=== PATIENT | female | born 1990 | race Caucasian/White ===

== ENCOUNTER 2018-07-17 12:42 | Emergency (ER) | payer OTHER ==
[~2018-07-17] VITALS: Ht 152.4 cm; Wt 107.3 kg
[~2018-07-17 12:42] MED LIST: AMOX500T PO; ANUS2.5C2 TOP; BUTATAB6 PO; COLA100C5 PO; DOCU10CA PO; FIORCAP3 PO; IBUP80TA PO; MAPA500T2 PO; MOM30SS PO; MOTR200T44 PO; NUPE1OIN2 TOP; PRENTAB31 PO; TYLE650T35 PO
[2018-07-17] MEDS ORDERED: SERT-155 (13:02)
[2018-07-17] MEDS ORDERED: NS 1,000 ML IV ONE (15:30)
[2018-07-17] MEDS ORDERED: diphenhydrAMINE INJ 50MG/ML VIAL (J1200) IV ONE (15:30)
[2018-07-17] MEDS ORDERED: METOCLOPRAMIDE INJ 10MG/2ML VIAL (J2765) IV ONE (15:30)
[2018-07-17 15:56] LABS: HEMATOCRIT 36.3 % (36.0-47.0); HEMOGLOBIN 11.9 g/dl (12.0-15.5); MEAN CORPUSCULAR HEMOGLOBIN 26.7 pg (27.0-33.0); MEAN CORPUSCULAR HGB CONC 32.8 g/dl (32.0-36.5); MEAN CORPUSCULAR VOLUME 81.6 fl (80.0-96.0); PLATELET COUNT, AUTOMATED 205 10^3/uL (150-450); RED BLOOD COUNT 4.45 10^6/uL (4.00-5.40); WHITE BLOOD COUNT 8.9 10^3/uL (4.0-10.0)
[2018-07-17 16:07] LABS: INR 1.02; PARTIAL THROMBOPLASTIN TIME 29.5 SECONDS (25.4-37.6); PROTHROMBIN TIME 13.5 SECONDS (12.1-14.4)
[2018-07-17 16:32] LABS: ALT/SGPT 25 U/L (12-78); BILIRUBIN,DIRECT < 0.1 MG/DL (0.0-0.2); BILIRUBIN,TOTAL 0.2 MG/DL (0.2-1.0); BLOOD UREA NITROGEN 8 MG/DL (7-18); CALCIUM LEVEL 8.2 MG/DL (8.5-10.1); CARBON DIOXIDE LEVEL 27 MEQ/L (21-32); CHLORIDE LEVEL 106 MEQ/L (98-107); CREATININE FOR GFR 0.43 MG/DL (0.55-1.30); GLOMERULAR FILTRATION RATE > 60.0 (>60); GLUCOSE, FASTING 76 MG/DL (70-100); MAGNESIUM LEVEL 1.9 MG/DL (1.8-2.4); POTASSIUM SERUM 3.9 MEQ/L (3.5-5.1); SODIUM LEVEL 139 MEQ/L (136-145); TOTAL PROTEIN 6.7 GM/DL (6.4-8.2)
--- NOTE | 2018-07-17 16:39 | REP ---
Clinical: Abdominopelvic pain and cramping. Evaluate for viability. Technique: Transabdominal first trimester obstetrical ultrasound Findings: Single live early intrauterine is appreciated. Early live intrauterine identified. heart rate equals 165 beats per minute. Amniotic fluid volume is subjectively normal. Impression: Single live early intrauterine identified. Electronically Signed by Dwaine Carrasquillo MD 07/17/2018 04:30 P
[2018-07-17] MEDS ORDERED: MORPHINE 4 MG/ML 1ML VIAL/SYRINGE (J2270) IV ONE (17:00)
[2018-07-17 18:21] VITALS: BP 131/76
== END 2018-07-17 18:24 | disposition home or self-care (01) ==
LOC: M ED 12:42
DX: O99.351 Diseases of the nervous system complicating pregnancy, first trimester (principal); O99.411 Diseases of the circulatory system complicating pregnancy, first trimester; R03.0 Elevated blood-pressure reading, without diagnosis of hypertension; O99.341 Other mental disorders complicating pregnancy, first trimester; F32.9 Major depressive disorder, single episode, unspecified; F41.9 Anxiety disorder, unspecified; Z82.0 Family history of epilepsy and other diseases of the nervous system; Z82.49 Family history of ischemic heart disease and other diseases of the circulatory system; Z3A.11 11 weeks gestation of pregnancy
CPT/HCPCS: 76815; 80048; 80076; 81001; 83735; 85027; 85610; 85730; 87086; 96374; 96375; 99284; J1200; J2270; J2765

== ENCOUNTER → 2019-01-02 | Outpatient (CLI) | payer OTHER ==
[~2019-01-02] MED LIST changes: +SERT-155
[2019-01-02 15:30] LABS: HEMATOCRIT 29.5 % (36.0-47.0); HEMOGLOBIN 9.3 g/dl (12.0-15.5); MEAN CORPUSCULAR HEMOGLOBIN 24.6 pg (27.0-33.0); MEAN CORPUSCULAR HGB CONC 31.5 g/dl (32.0-36.5); PLATELET COUNT, AUTOMATED 179 10^3/uL (150-450); RED BLOOD COUNT 3.78 10^6/uL (4.00-5.40); WHITE BLOOD COUNT 7.3 10^3/uL (4.0-10.0)
[2019-01-02 15:42] LABS: APPEARANCE, URINE CLEAR (CLEAR); BACTERIA, URINE AUTO 1+ (NEGATIVE); BILIRUBIN, URINE AUTO NEGATIVE (NEGATIVE); BLOOD, URINE BLOOD NEGATIVE (NEGATIVE); COLOR, URINE YELLOW (YELLOW); GLUCOSE, URINE (UA) AUTO NEGATIVE (NEGATIVE); KETONE, URINE AUTO NEGATIVE (NEGATIVE); LEUKOCYTE ESTERASE, URINE AUTO 1+ (NEGATIVE); MUCUS, URINE SMALL (NEGATIVE); NITRITE, URINE AUTO NEGATIVE (NEGATIVE); PROTEIN, URINE AUTO NEGATIVE (NEGATIVE); RBC, URINE AUTO 4 /HPF (0-3); SPECIFIC GRAVITY URINE AUTO 1.014 (1.002-1.035); SQUAMOUS EPITHELIAL CELL UR AU 5 /HPF (0-6); UROBILINOGEN, URINE AUTO 0.2 mg/dL (0.0-2.0); WBC, URINE AUTO 7 /HPF (0-3)
[2019-01-02 16:04] LABS: CREATININE,RANDOM URINE 80.4 MG/DL; TOTAL PROTEIN,RANDOM URINE 17.1 MG/DL (0.0-12.0)
[2019-01-02 16:20] LABS: ALBUMIN 2.5 GM/DL (3.2-5.2); ALT/SGPT 28 U/L (12-78); BILIRUBIN,DIRECT < 0.1 MG/DL (0.0-0.2); BILIRUBIN,TOTAL 0.2 MG/DL (0.2-1.0); BLOOD UREA NITROGEN 7 MG/DL (7-18); CALCIUM LEVEL 8.5 MG/DL (8.5-10.1); CARBON DIOXIDE LEVEL 21 MEQ/L (21-32); CHLORIDE LEVEL 109 MEQ/L (98-107); CREATININE FOR GFR 0.56 MG/DL (0.55-1.30); GLOMERULAR FILTRATION RATE > 60.0 (>60); GLUCOSE, FASTING 111 MG/DL (70-100); LDH LACTATE DEHYDROGENASE 221 U/L (84-246); POTASSIUM SERUM 3.9 MEQ/L (3.5-5.1); SODIUM LEVEL 139 MEQ/L (136-145); URIC ACID 4.3 MG/DL (2.6-6.0)
== END ==
LOC: M LAB 14:38
PROVIDERS: ATTEND Obstetrics & Gynecology
DX: O14.90 Unspecified pre-eclampsia, unspecified trimester (principal); Z3A.00 Weeks of gestation of pregnancy not specified

== ENCOUNTER 2019-01-11 01:11 | Inpatient (IN) | payer OTHER ==
[~2019-01-11] VITALS: Ht 154.9 cm; Wt 112.9 kg
[2019-01-11] VITALS (14 sets, daily range): BP systolic 111–145; BP diastolic 57–86
[2019-01-11 02:19] LABS: BASO % 0.5 % (0.0-1.0); EOS % 0.5 % (0.0-3.0); HEMATOCRIT 30.1 % (36.0-47.0); HEMOGLOBIN 9.5 g/dl (12.0-15.5); LYMPH # 1.9 10^3/uL (1.5-6.5); LYMPH % 23.4 % (24.0-44.0); MEAN CORPUSCULAR HEMOGLOBIN 24.4 pg (27.0-33.0); MEAN CORPUSCULAR HGB CONC 31.6 g/dl (32.0-36.5); MEAN CORPUSCULAR VOLUME 77.2 fl (80.0-96.0); MONO # 0.5 10^3/uL (0.0-0.8); MONO % 6.3 % (0.0-5.0); NEUTROPHILS # 5.5 10^3/uL (1.8-7.7); NEUTROPHILS % 68.2 % (36.0-66.0); PLATELET COUNT, AUTOMATED 187 10^3/uL (150-450); WHITE BLOOD COUNT 8.1 10^3/uL (4.0-10.0)
[2019-01-11] MEDS ORDERED: BACT800T5 PO (02:24)
[2019-01-11] MEDS ORDERED: FIOR1CAP PO (02:24)
--- NOTE | 2019-01-11 02:45 | HPEPDOC ---
Obstetrical History & Physical General Date of Admission Jan 11, 2019 at 01:45 History of Present Illness Chief Complaint: LOF, pre-term Information Provided By: Patient Age: 28 : 5 Term: 4 Pre-term: 0 Abortions: 0 Livin Care Care: Good Care Number of Visits: 9 Dating Final EDC: Feb 10, 2019 Final EDC for Daily Update: Feb 10, 2019 Final EDC by: LMP LMP: May 06, 2018 EGA at Admission: 35.5 Antepartum Course Diagnos(e)s Obesity Migraines Anxiety hx of prior pre-eclampsia A neg blood type Height (inches): 61 Pre- weight (lbs.): 225 Admission Weight (lbs.): 248 Change in Weight (lbs.): 23 Past Medical History Past Obstetrical History #1: Past Obstetrical History: Primgravida Date of Delivery: May 17, 2012 Gestation: 37 Type of Delivery: Spontaneous Vaginal Del. Sex of Infant: Female Weight of (grams): 2948 Complications: Yes (Pre-eclampsia with severe features) Past Obstetrical History #2: Past Obstetrical History: Multigravida Date of Delivery: Oct 25, 2013 Gestation: 39 Type of Delivery: Spontaneous Vaginal Del. Sex of : Female Weight of Infant (grams): 3401 Complications: Yes (Pre-eclampsia) Past Obstetrical History #3: Past Obstetrical History: Multigravida Date of Delivery: Jan 31, 2015 Gestation: 39 Type of Delivery: Spontaneous Vaginal Del. Sex of : Female Weight of Infant (grams): 3220 Complications: Yes (Pre-eclampsia) Past Obstetrical History #4: Past Obstetrical History: Multigravida Date of Delivery: Jan 26, 2016 Gestation: 39 Type of Delivery: Spontaneous Vaginal Del. 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: No pertinent history Past Medical History Medical History Anxiety-on zoloft 50mg Migraines-fioricet Rh negative-received rhogam 28+wks Maternal obesity Surgical History: [place] teeth, Other (Carpal tunnel) Family History Significant Family History: No pertinent family hx Social History Marital Status: Family situation: Spouse/partner home Psychosocial History: Anxiety * Smoker: non-smoker Alcohol: Denies Drugs: denies Abuse Violence Screening Have you been hit/kicked/slapp: No Have you been sexually assault: No Imunizations Tdap status: current Influenza Status: declined Allergies Coded Allergies: No Known Allergies (Unverified , 12/11/14) Medications Scheduled Butalb/Acetaminophen/Caffeine (Fioricet 50-300-40 mg Capsule) 1 Each Capsule, 1 CAP PO BID Multivitamins/ ( Forte) 1 Tab Tab, 1 TAB PO DAILY Scheduled PRN Acetaminophen (Tylenol Arthritis) 650 Mg Tab, 650 MG PO Q4HP PRN for PAIN OR FEVER Miscellaneous Medications Sertraline HCl (Sertraline HCl) 50 Mg Tab Physical Examination Physical Examination GENERAL: Alert and oriented times three. BREAST: not examined ABDOMEN: Gravid and non-tender to touch. FETUS: Is vertex (VTX) by sterile vaginal examination (SVE), fetus is vertex (VT X) by Juanjo. HEART RATE: Regular rate and rhythm. LUNGS: Clear to auscultation (CTA). EXTREMITIES: No edema. No clonus. Pelvic: Patient Services Rep present: 1/50%/-2 ceph, gross clear fluid noted, nitrazene positive. Vital Signs/I&O reviewed wnl Laboratory Data 24H LABS Laboratory Tests 2 01/11/19 01:47: Serology Scanned Report Hepatitis B Testing Pertinent Laboratoy Data Blood Type: A- (ab negative) RBC Antibody Screen: Negative HIV: Negative Hepatitis B: Negative Hepatitis C: Negative Rapid Plasma Reagin: Nonreactive Rubella: Immune Varicella: Nonreactive Chlamydia/Gonorrhea: Negative Group B Streptococcus: Negative Quad Screen Test: Negative Cystic Fibrosis: Negative Glucose Tolerance Test: 120 Anatomy Ultrasound Ultrasound Date: September 27, 2018 Placenta Location: Posterior Normal Anatomy: Yes Placenta Previa: No Estimated Weight (grams): 394 Other Ultrasounds 29wk US POsterior placentation w/o previa EFW 1260g 73% Steroid Therapy Steroid Therapy: No Vaginal Examination Dilation: 1cm Effacement: 50% Station: -2 Cervical Consistency: Soft Cervical Position: Posterior Presentation: Cephalic presentation Position: Vertex (occiput) Assessment Heart Rate (FHR): 145 Variability: Moderate Accelerations: Positive Decelerations: None Tocometer Contractions: Yes Frequency: irregular Duration: less than 60 seconds Strength: palpated as mild Multi-drug resistant Organism: No history of MDRO Assessment/Plan Assessment Pt is a 28-year-old (G)5 para (P)4-0-0-4 at 35+5 weeks by lmp c/b 19- week ultrasound. Presents to Labor and Delivery (L&D) with gross rupture of clear fluid at 0000h on 11 January 2019. Pt actually seen ambulating with overt evidence of fluid on pants and undergarments and on vaginal exam. Nitrazene positive. Ferning deferred due to overt evidence of ROM. Pt feels contractions are getting more intense and in general would like an unmedicated and avoid initial medication for augmentation. We reviewed luther bulb/cytotec/pitocin and indications/risk including rare need for delivery for NRFHT. Reviewed operative and vaginal delivery as well as potential pudendal block and role of narcotic medications as well as epidural for labor analgesia continuous monitoring per protocol tracing is category I on admission Will monitor for a couple hours if no change in contractile status will begin augmentation/induction. EFW = 3300g pt proven to 3674g, pelvis feels adequate and presentation is cephalic c/b US today. GBS neg no need for abx prophylaxis Rh neg received 28+wks rhogam Varicella non immune will need vaccination did receive TDAP Anxiety on Zoloft will continue Just completed recent UTI treatment with BACtrim . Plan Admit and orient. 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 Diet: [clear liquid]. Group B Streptococcus (GBS) [negative]. Labs and intravenous (IV) per unit protocol. Counseled on Pitocin and induction of labor (IOL). Anticipate [normal spontaneous delivery ()]. C-S as appropriate. SHARRON HEREDIA MD Jan 11, 2019 02:45
[2019-01-11] MEDS ORDERED: ACETAMINOPHEN TAB 650MG DOSE (2X325MG) PO PRN ×2 (03:00→15:45)
[2019-01-11] MEDS ORDERED: miSOPROStol 25 MCG 1/4 TAB (S0191) PV ONE (06:30)
--- NOTE | 2019-01-11 06:45 | IPNPDOC ---
Obstetrical Progress Note Date of Service Jan 11, 2019 Subjective contractions dissipated after initial increase on presentation over past couple hours and no more than 1 every 9-10minutes palpating now as mild. No fever or fundal tenderness. reviewed and discussed options and will place luther bulb and 25mcg of vaginal cytotec. Objective Vital Signs Date Time Temp Pulse Resp B/P (MAP) Pulse Ox O2 Delivery O2 Flow Rate FiO2 01/11/19 02:43 106 18 116/58 (77) 01/11/19 01:31 98.9 Assessment Heart Rate (FHR): 135 Variability: Moderate Accelerations: Positive Decelerations: None Heart Rate Tracing: Category I Tocometer Contractions: Yes Frequency: irregular, greater than 9 min/apart Duration: less than 60 seconds Strength: palpated as mild Sterile Vaginal Examination Dilation: 1cm Effacement (%): 50% Station: -1 Cervical Consistency: Soft Cervical Position: Posterior Postion/Presentation: Cephalic presentation Assessment and Plan Age: 28 : 5 Term: 4 Pre-term: 0 Abortions: 0 Livin EGA at Admission: 35.5 Weeks & Days 35w5d by lmp c/b 19 wk US Posterior placentation Status: Reassuring Group B Streptococcus: Negative Anticipate: Vaginal Delivery Additional Comments foleybulb with 40mL placed as well as 25mcg of vaginal cytotec. Category I tracing. cephalic presentation c/b US on admission. vertex decended to -1 from -2. SHARRON HEREDIA MD Jan 11, 2019 06:45
[2019-01-11] MEDS ORDERED: LR 1,000 ML IV SCH (10:53)
[2019-01-11] MEDS ORDERED: OXYTOCIN DRIP 30 UNITS in APPROPRIATE DILUENT 1 EA IV SCH ×2 (11:00→15:37)
[2019-01-11 15:14] LABS: CORD GAS ABE A -1.6; CORD GAS HCO3 A 26.1 MEQ/L; CORD GAS O2 SAT A 28.3 %; CORD GAS PCO2 A 55.5 mmHg; CORD GAS PH A 7.291 UNITS; CORD GAS PO2 A 15.5 mmHg; CORD GAS SBC A 21.3 MEQ/L; CORD GAS TCO2 A 27.9 MEQ/L
[2019-01-11 15:17] LABS: CORD GAS ABE V -2.8; CORD GAS HCO3 V 22.9 MEQ/L; CORD GAS O2 SAT V 62.8 %; CORD GAS PCO2 V 42.8 mmHg; CORD GAS PH V 7.346 UNITS; CORD GAS PO2 V 25.8 mmHg; CORD GAS SBC V 21.2 MEQ/L; CORD GAS TCO2 V 24.2 MEQ/L
[2019-01-11] MEDS ORDERED: RHOGAM 300 MCG (1500 IU) INJ (J2790) IM SCH (15:45)
[2019-01-11] MEDS ORDERED: MOM 30ML SUSPENSION UDC PO PRN (15:45)
[2019-01-11] MEDS ORDERED: IBUPROFEN 600 MG TAB PO PRN (15:45)
[2019-01-11] MEDS ORDERED: DIBUCAINE 1% OINTMENT 30GM TOP PRN (15:45)
[2019-01-11] MEDS ORDERED: ACETAMINOPHEN 500 MG TAB PO PRN (15:45)
[2019-01-11] MEDS ORDERED: ANUSOL HC CREAM 30GM TOP PRN (15:45)
[2019-01-11] MEDS ORDERED: METHYLERGONOVINE MALEATE 0.2 MG TAB PO PRN (15:45)
[2019-01-11] MEDS ORDERED: OXYTOCIN INJ 10 UNITS/ML VIAL (J2590) IV ONE (15:45)
[2019-01-11] MEDS ORDERED: MEASLES,MUMPS,RUBELLA VACCINE INJ (MMR-II) (90707) SC SCH (15:45)
[2019-01-11] MEDS ORDERED: DOCUSATE SODIUM 100 MG CAP PO PRN (15:45)
--- NOTE | 2019-01-11 16:30 | IPN ---
DATE: 01/11/2019 TIME: 10:50 a.m. This lady is a 28-year-old 5, para 4 admitted at 35 and 5 weeks of gestation with documented history of spontaneous rupture of membranes and no contractions. Her antepartum course risk factors are obesity, migraines, anxiety, previous history of preeclampsia, bleeding. Her Body Mass Index (BMI) is 43.0. She had a Mayer bulb catheter placed with one dose of misoprostol at 25 mg. The Mayer bulb fell out. She was having some moderate contractions every 5-7 minutes apart of mild intensity. PHYSICAL EXAMINATION: On examination presently, we find the cervix is unchanged about 2 cm, very posterior -3 station, not well applied. Clear liqua. No evidence of fever and a category one strip. Blood pressure presently is 122/76, respirations 18, pulse 109, temperature 97.8. Her white count is 8.1, hematocrit 30.1 and platelets are 187. We discussed the prolonged rupture of membranes with inadequate contractions with increased risk of infection and an increased risk of admission to the intensive care unit (NICU). Not to mention, there is an increased risk of section based on tachycardia, fever and elevated white count as a diagnosis of chorioamnionitis. We also discussed the use of Pitocin to augment her contractions and improve the quality of contractions. After discussing risks and benefits, the patient expressed understanding. All questions were answered. We had a 20-minute discussion. We will start her Pitocin in the immediate present.
[2019-01-11] MEDS: IBUPROFEN 800 MG TAB PO PRN (17:23)
[2019-01-12 06:00] VITALS: BP 120/66
[2019-01-12] MEDS: IBUPROFEN 800 MG TAB PO PRN ×3 (06:05→23:01)
[2019-01-12 06:54] LABS: HEMATOCRIT 30.5 % (36.0-47.0); HEMOGLOBIN 9.5 g/dl (12.0-15.5); MEAN CORPUSCULAR HEMOGLOBIN 24.5 pg (27.0-33.0); MEAN CORPUSCULAR HGB CONC 31.1 g/dl (32.0-36.5); MEAN CORPUSCULAR VOLUME 78.6 fl (80.0-96.0); PLATELET COUNT, AUTOMATED 175 10^3/uL (150-450); RED BLOOD COUNT 3.88 10^6/uL (4.00-5.40); WHITE BLOOD COUNT 10.8 10^3/uL (4.0-10.0)
[2019-01-12] MEDS: PRENATAL VITAMINS CHEWABLE TABLET PO SCH (08:01)
--- NOTE | 2019-01-12 08:59 | IPN ---
DATE OF SERVICE: 01/12/2019 day #1. This is a 28-year-old 5 now para 5 who is admitted for induction of labor at 35 and 5 weeks of gestation with query spontaneous rupture of membrane. She had a precipitous delivery of live male infant 5 pounds 14 ounces, 2660 grams, of 9 and 9 and one and five minutes respectfully. Arterial pH 7.29, base excess -1.6, venous pH 7.34, base excess -2.8. Risk factors are her BMI is 42.6. She suffers from migraines and anxiety. On her first day, we discussed phlebitis, cystitis, mastitis, endometritis and cellulitis, diet, exercise, pain management, perineal/breast care. Her temperature this morning is 97.6, pulse 103, respirations 18, blood pressure 120/66. She is currently breast-feeding. Baby is out of the NICU at observation status for 3 hours because of prematurity and premature rupture of membranes. Lochia is moderate. Uterus two below. Four quadrant bowel sounds are noted. Perineum is intact. The patient was dispensed her medications for discharge and a 6-week checkup will be made on Monday. The rest of the examination unremarkable. Normocephalic, atraumatic. Neck: Full range of motion. Pupils equal and reactive to light. Distal pulses symmetric. No evidence of DVT, PE or superficial phlebitis. Chest is clear bilaterally to bases. No wheezes or rhonchi. No CVA tenderness. The patient is anxious to go home tomorrow. All four children were present to review the . There is good family dynamics and a good support system.
[2019-01-12 18:11] VITALS: BP 110/71
[2019-01-13 06:00] VITALS: BP 127/77
--- NOTE | 2019-01-13 07:44 | IPNPDOC ---
Progress Note Date of Service: Jan 13, 2019 Day#: 2 Progress Note SUBJECT: Ms. Garcia is a 28yo G5 now P5 s/p uncomplicated at 35+5wks on of a male infant, 2660g, no laceration or repair needed. Pt is now PP Day #2, ambulating well, Reports some cramping with , minimal bleeding. Denies any pain. Voiding and stooling without difficulty. OBJECTIVE: VITAL SIGNS: Within normal limits, afebrile. Alert and oriented times three. Abdomen: Fundus firm at U-2. Minimal lochia. ASSESSMENT: PP Day #2, normal involution, stable and progressing well. Breastmilk only. Vitals within normal limits, afebrile, hemodynamically stable with no evidence of infection. PLAN: 1. Discharge to home today. 2. Tylenol and Motrin for pain. 3. Encourage breast feeding and ambulation. 4. BTL planned with Dr. Gutierrez. 5. Routine PP visit in 6 weeks in clinic. 6. Discussed return precautions at length. VS, I&O, 24H, Fishbone Vital Signs/I&O Vital Signs Date Time Temp Pulse Resp B/P (MAP) Pulse Ox O2 Delivery O2 Flow Rate FiO2 01/13/19 06:00 99.1 104 18 127/77 (94) 01/11/19 17:30 99 SOFIA MONTES CNM Jan 13, 2019 07:44
--- NOTE | 2019-01-13 07:49 | OBDS ---
[facility] Obstetrical Discharge Sum. Obstetrical Discharge Summary Date: Jan 13, 2019 : 5 Term: 4 Pre-term: 1 Abortions: 0 Livin Infant Sex: Male A/P, Post Course List any complications Admission diagnosis: PPROM Discharge diagnosis: Condition at Discharge: Stable Discharge Instructions: Discharge to home today. Activity: Increase physical activity as tolerated, vaginal rest for 6 weeks Diet: Regular Medications: Motrin and tylenol PRN as prescribed Follow-up: 6-8 week visit at [facility] SOFIA MONTES CNM Jan 13, 2019 07:49
[2019-01-13] MEDS ORDERED: IBUP80TA PO (07:56)
[2019-01-13] MEDS: PRENATAL VITAMINS CHEWABLE TABLET PO SCH (08:43)
[2019-01-13] MEDS: IBUPROFEN 800 MG TAB PO PRN (08:44)
--- NOTE | 2019-01-14 15:51 | DN ---
DATE: 01/11/2019 This lady is 28-year-old 5, para 4 who was admitted in rock spl[facility] with spontaneous rupture of membranes at 35 of 5 weeks of gestation. She had a Mayer bulb and 25 mg of Misoprostol per vagina, Mayer bulb fell out. Her contractions were minimal. On examination, she was still posterior about 2 cm and -3 station. The head was not well applied to the cervix. We started on Pitocin. She had 8 mL of Pitocin and eventually began uncontrollably pushing. She was examined and found to be 9 1/2 cm with bulging membranes. Artificial rupture of membranes was done draining clear liquor. We pushed back to cervix. She had a precipitous delivery of a live male infant weighing 2660 grams, 5 pounds 14 ounces. scores of 9 and 9 at 1 and 5 minutes, respectively. Arterial pH 7.29, base excess -1.6. Venous pH 7.34, base excess -2.8. Dr. Reese was in attendance for possible resuscitation. The placenta was 10 minutes out, spontaneous delivery, complete. On examination, no evidence of extensions, tears or lacerations. Quite gaping vagina, very edematous anterior lip of the cervix. The uterus contracted well down under Pitocin. The patient and baby tolerated the procedure well.
== END 2019-01-13 11:30 | disposition home or self-care (01) | DRG 807 ==
LOC: M LDO 01:11 → M LDI 01:45 → M OBS 17:15
PROVIDERS: ADMIT Obstetrics & Gynecology; ATTEND Obstetrics & Gynecology
PROC: 10E0XZZ Delivery of Products of Conception, External Approach (ICD-10-PCS; principal; 2019-01-11)
DX: O42.013 Preterm premature rupture of membranes, onset of labor within 24 hours of rupture, third trimester (principal); Z37.0 Single live birth; Z3A.35 35 weeks gestation of pregnancy; O99.214 Obesity complicating childbirth; E66.9 Obesity, unspecified; O62.3 Precipitate labor

== ENCOUNTER → 2021-06-08 | Outpatient (CLI) | payer OTHER, MEDICAID ==
[~2021-06-08] MED LIST changes: +ACET650T61 PO; +BACT800T5 PO; +BUTA-199 PO; -BUTATAB6 PO; +FIOR1CAP PO; -SERT-155; +SERT50TA29; -TYLE650T35 PO
[2021-06-08 13:25] LABS: BASO % 0.6 % (0.0-1.0); EOS # 0.1 10^3/uL (0.0-0.5); EOS % 1.8 % (0.0-3.0); HEMATOCRIT 35.9 % (36.0-47.0); LYMPH # 1.8 10^3/uL (1.5-5.0); LYMPH % 26.4 % (24.0-44.0); MEAN CORPUSCULAR HEMOGLOBIN 23.5 pg (27.0-33.0); MEAN CORPUSCULAR HGB CONC 30.6 g/dl (32.0-36.5); MEAN CORPUSCULAR VOLUME 76.5 fl (80.0-96.0); MONO # 0.5 10^3/uL (0.0-0.8); MONO % 6.8 % (2.0-8.0); NEUTROPHILS # 4.2 10^3/uL (1.5-8.5); NEUTROPHILS % 63.6 % (36.0-66.0); PLATELET COUNT, AUTOMATED 245 10^3/uL (150-450); RED BLOOD COUNT 4.69 10^6/uL (4.00-5.40); WHITE BLOOD COUNT 6.6 10^3/uL (4.0-10.0)
[2021-06-08 14:19] LABS: ERYTHROCYTE SEDIMENTATION RATE 26 mm/hr (0-20)
[2021-06-08 15:51] LABS: ALBUMIN 3.4 GM/DL (3.2-5.2); ALT/SGPT 64 U/L (12-78); BILIRUBIN,TOTAL 0.3 MG/DL (0.2-1.0); BLOOD UREA NITROGEN 10 MG/DL (7-18); CALCIUM LEVEL 8.7 MG/DL (8.5-10.1); CARBON DIOXIDE LEVEL 28 MEQ/L (21-32); CHLORIDE LEVEL 107 MEQ/L (98-107); CREATININE FOR GFR 0.65 MG/DL (0.55-1.30); GLOMERULAR FILTRATION RATE > 60.0 (>60); GLUCOSE, FASTING 76 MG/DL (70-100); POTASSIUM SERUM 4.1 MEQ/L (3.5-5.1); RHEUMATOID FACTOR QUANT < 10.0 IU/ML (<15.0); SODIUM LEVEL 139 MEQ/L (136-145); TOTAL PROTEIN 6.7 GM/DL (6.4-8.2)
[2021-06-08 15:59] LABS: FOLATE 8.3 NG/ML; TOTAL 25(OH) VITAMIN D 10.7 NG/ML (30.0-100.0); VITAMIN B12 LEVEL 238 PG/ML
[2021-06-09 13:08] LABS: ANTINUCLEAR ANTIBODIES DIRECT Negative (Negative)
== END ==
LOC: M PLALAB 11:46
PROVIDERS: ATTEND Psychiatry & Neurology Neurology
DX: R51.9 Headache, unspecified (principal); E55.9 Vitamin D deficiency, unspecified

== ENCOUNTER → 2022-01-17 | Outpatient (CLI) | payer MEDICAID ==
[2022-01-17 11:42] LABS: PERCENT SATURATION 9.3 % (13.2-45.0)
[2022-01-17 12:15] LABS: TOTAL 25(OH) VITAMIN D 29.4 NG/ML (30.0-100.0)
[2022-01-17 12:16] LABS: FOLATE 7.4 NG/ML
== END ==
LOC: M LAB 09:50
PROVIDERS: ATTEND Psychiatry & Neurology Neurology
DX: E61.1 Iron deficiency (principal); D51.9 Vitamin B12 deficiency anemia, unspecified; E55.9 Vitamin D deficiency, unspecified; G25.81 Restless legs syndrome

== ENCOUNTER → 2022-06-13 | Outpatient (CLI) | payer MEDICAID ==
[2022-06-13 12:31] LABS: BASO # 0.1 10^3/uL (0.0-0.2); EOS # 0.1 10^3/uL (0.0-0.5); EOS % 1.2 % (0.0-3.0); HEMATOCRIT 33.9 % (36.0-47.0); HEMOGLOBIN 9.9 g/dl (12.0-15.5); LYMPH # 1.5 10^3/uL (1.5-5.0); LYMPH % 30.8 % (24.0-44.0); MEAN CORPUSCULAR HEMOGLOBIN 21.9 pg (27.0-33.0); MEAN CORPUSCULAR HGB CONC 29.2 g/dl (32.0-36.5); MEAN CORPUSCULAR VOLUME 74.8 fl (80.0-96.0); MONO # 0.4 10^3/uL (0.0-0.8); MONO % 8.1 % (2.0-8.0); NEUTROPHILS # 2.9 10^3/uL (1.5-8.5); NEUTROPHILS % 58.7 % (36.0-66.0); PLATELET COUNT, AUTOMATED 275 10^3/uL (150-450); RED BLOOD COUNT 4.53 10^6/uL (4.00-5.40); WHITE BLOOD COUNT 4.9 10^3/uL (4.0-10.0)
[2022-06-13 13:00] LABS: TOTAL 25(OH) VITAMIN D 14.8 NG/ML (20.0-100.0)
[2022-06-13 13:01] LABS: ALBUMIN 3.5 G/DL (3.2-5.2); ALKALINE PHOSPHATASE 90 U/L (46-116); ALT/SGPT 37 U/L (7.0-40); AST/SGOT 19 U/L (<34); BILIRUBIN,TOTAL 0.5 MG/DL (0.3-1.2); BLOOD UREA NITROGEN 12 MG/DL (9-23); CALCIUM LEVEL 9.1 MG/DL (8.5-10.1); CARBON DIOXIDE LEVEL 28 MMOL/L (20-31); CHLORIDE LEVEL 106 MMOL/L (98-107); FOLATE 10.77 NG/ML (>5.4); GLOMERULAR FILTRATION RATE > 60.0 (>60); GLUCOSE, FASTING 86 MG/DL (60-100); POTASSIUM SERUM 4.1 MMOL/L (3.5-5.1); SODIUM LEVEL 141 MMOL/L (136-145); TOTAL PROTEIN 6.4 G/DL (5.7-8.2)
[2022-06-13 13:06] LABS: VITAMIN B12 LEVEL > 2000 PG/ML (211-911)
== END ==
LOC: M LAB 11:23
PROVIDERS: ATTEND Psychiatry & Neurology Neurology
DX: R51.9 Headache, unspecified (principal); E53.8 Deficiency of other specified B group vitamins; E55.9 Vitamin D deficiency, unspecified

== ENCOUNTER 2022-12-11 21:29 | Emergency (ER) | payer MEDICAID ==
[~2022-12-11] VITALS: Ht 152.4 cm; Wt 112.6 kg
[2022-12-11] MEDS ORDERED: TRAZ-189 (21:40)
[2022-12-11] MEDS ORDERED: CYAN1000VL (21:40)
[2022-12-11] MEDS ORDERED: AIMO70IN2 (21:40)
[2022-12-11] MEDS ORDERED: SUMA100T2 (21:40)
[2022-12-11] MEDS ORDERED: ISOVUE-370 76% 100ML VIAL As Ordered ONE (22:11)
[2022-12-11] MEDS ORDERED: NS 1,000 ML IV ONE (22:15)
[2022-12-11 22:23] LABS: VENOUS BASE EXCESS -1.6 (-2.0-2.0); VENOUS HCO3 24.7 MMOL/L (23.0-27.0); VENOUS O2 SATURATION 69.1 % (60.0-80.0); VENOUS PARTIAL PRESSURE CO2 48.4 mmHg (38.0-50.0); VENOUS PARTIAL PRESSURE O2 38.9 mmHg (30.0-50.0); VENOUS PH 7.325 UNITS (7.330-7.430); VENOUS STANDARD HCO3 22.6 MMOL/L; VENOUS TOTAL CO2 26.1 MMOL/L (24.0-28.0)
[2022-12-11 22:29] LABS: BASO # 0.1 10^3/uL (0.0-0.2); BASO % 0.6 % (0.0-1.0); EOS # 0.1 10^3/uL (0.0-0.5); EOS % 0.7 % (0.0-3.0); HEMATOCRIT 30.6 % (36.0-47.0); HEMOGLOBIN 9.3 g/dl (12.0-15.5); LYMPH # 2.2 10^3/uL (1.5-5.0); LYMPH % 27.1 % (24.0-44.0); MEAN CORPUSCULAR HEMOGLOBIN 21.9 pg (27.0-33.0); MEAN CORPUSCULAR HGB CONC 30.4 g/dl (32.0-36.5); MEAN CORPUSCULAR VOLUME 72.2 fl (80.0-96.0); MONO # 0.7 10^3/uL (0.0-0.8); MONO % 8.3 % (2.0-8.0); NEUTROPHILS # 5.1 10^3/uL (1.5-8.5); NEUTROPHILS % 62.8 % (36.0-66.0); PLATELET COUNT, AUTOMATED 262 10^3/uL (150-450); RED BLOOD COUNT 4.24 10^6/uL (4.00-5.40); WHITE BLOOD COUNT 8.1 10^3/uL (4.0-10.0)
[2022-12-11 22:40] VITALS: BP 126/64; TEMP 97.3; O2SAT 99
[2022-12-11 22:48] LABS: INR 0.98; PROTHROMBIN TIME 13.2 SECONDS (12.5-14.5)
[2022-12-11 22:49] LABS: PARTIAL THROMBOPLASTIN TIME 26.4 SECONDS (24.8-34.2)
[2022-12-11 22:54] LABS: ETHYL ALCOHOL (ETHANOL) < 0.003 % (0.000-0.010)
[2022-12-11 22:56] LABS: BLOOD UREA NITROGEN 12 MG/DL (9-23); CALCIUM LEVEL 8.3 MG/DL (8.5-10.1); CARBON DIOXIDE LEVEL 26 MMOL/L (20-31); CHLORIDE LEVEL 107 MMOL/L (98-107); CREATININE FOR GFR 0.65 MG/DL (0.55-1.30); GLOMERULAR FILTRATION RATE > 60.0 (>60); GLUCOSE, FASTING 92 MG/DL (60-100); POTASSIUM SERUM 3.6 MMOL/L (3.5-5.1); SODIUM LEVEL 140 MMOL/L (136-145)
[2022-12-11 22:59] LABS: RSV AMPLIFICATION NEGATIVE (NEGATIVE); THYROID STIMULATING HORMONE 3.138 uIU/ML (0.55-4.78)
[2022-12-11 23:00] VITALS: BP 140/69; TEMP 97.8; O2SAT 99
[2022-12-11 23:18] LABS: HCG, SERUM QUANTITATIVE 9849.3 MIU/ML (<4.2)
[2022-12-11 23:32] VITALS: BP 132/61; TEMP 97.5; O2SAT 99
[2022-12-12] MEDS ORDERED: RHOGAM 300MCG (1500IU) INJ IM ONE (00:20)
[2022-12-12 02:28] VITALS: BP 139/89
[2022-12-12 02:29] VITALS: O2SAT 100
== END 2022-12-12 02:35 | disposition home or self-care (01) ==
LOC: M ED 21:29
DX: O20.0 Threatened abortion (principal); Z3A.01 Less than 8 weeks gestation of pregnancy; Z79.899 Other long term (current) drug therapy
CPT/HCPCS: 36415; 76801; 76817; 80047; 80048; 82077; 82803; 84443; 84702; 85025; 85610; 85730; 86850; 86900; 86901; 87631; 93005; 93041; 93976; 94760; 96372; 99285; J2790; Q9967

== ENCOUNTER → 2023-01-19 | Outpatient (REF) | payer OTHER ==
[~2023-01-19] MED LIST changes: +AIMO70IN2; +CYAN1000VL; +SUMA100T2; +TRAZ-189
== END ==
LOC: M PLALAB 11:42
PROVIDERS: ATTEND Advanced Practice Midwife
DX: Z34.81 Encounter for supervision of other normal pregnancy, first trimester (principal); Z53.9 Procedure and treatment not carried out, unspecified reason

== ENCOUNTER → 2023-01-19 | Outpatient (CLI) | payer OTHER ==
[2023-01-19 17:48] LABS: HEMATOCRIT 33.2 % (36.0-47.0); HEMOGLOBIN 9.9 g/dl (12.0-15.5); MEAN CORPUSCULAR HEMOGLOBIN 22.1 pg (27.0-33.0); MEAN CORPUSCULAR HGB CONC 29.8 g/dl (32.0-36.5); MEAN CORPUSCULAR VOLUME 74.3 fl (80.0-96.0); PLATELET COUNT, AUTOMATED 276 10^3/uL (150-450); RED BLOOD COUNT 4.47 10^6/uL (4.00-5.40); WHITE BLOOD COUNT 7.7 10^3/uL (4.0-10.0)
[2023-01-19 18:11] LABS: LDH LACTATE DEHYDROGENASE 209 U/L (120-246); URIC ACID 3.4 MG/DL (3.1-7.8)
[2023-01-19 18:13] LABS: ALT/SGPT 19 U/L (7.0-40); AST/SGOT < 8 U/L (<34); BILIRUBIN,TOTAL 0.2 MG/DL (0.3-1.2); CREATININE FOR GFR 0.51 MG/DL (0.55-1.30); GLOMERULAR FILTRATION RATE > 60.0 (>60)
[2023-01-19 18:39] LABS: HIV 1&2 SCREEN NEGATIVE (NEGATIVE)
[2023-01-19 18:47] LABS: HEPATITIS C VIRUS ABY INDEX 0.14 INDEX (<0.8)
[2023-01-19 20:24] LABS: GC DNA AMPLIFICATION NEGATIVE (NEGATIVE)
== END ==
LOC: M PLALAB 12:09
PROVIDERS: ATTEND Advanced Practice Midwife
DX: Z34.81 Encounter for supervision of other normal pregnancy, first trimester (principal)

== ENCOUNTER → 2023-02-01 | Outpatient (REF) | payer OTHER ==
[2023-02-01 14:13] LABS: TOTAL PROTEIN,RANDOM URINE 17.8 MG/DL (0.0-14.0)
[2023-02-01 14:15] LABS: CREATININE,RANDOM URINE 184.9 MG/DL
== END ==
LOC: M SFHCWAGY 12:53
PROVIDERS: ATTEND Advanced Practice Midwife
DX: Z34.81 Encounter for supervision of other normal pregnancy, first trimester (principal)

== ENCOUNTER → 2023-03-20 | Outpatient (CLI) | payer OTHER | LOC: M WHC 11:09 | PROVIDERS: ATTEND Advanced Practice Midwife | DX: Z34.82 Encounter for supervision of other normal pregnancy, second trimester (principal) ==

== ENCOUNTER → 2023-04-21 | Outpatient (CLI) | payer OTHER | LOC: M WHC 10:40 | PROVIDERS: ATTEND Advanced Practice Midwife | DX: Z34.82 Encounter for supervision of other normal pregnancy, second trimester (principal) ==

== ENCOUNTER → 2023-05-03 | Outpatient (CLI) | payer OTHER ==
[2023-05-03 14:21] LABS: BASO % 0.4 % (0.0-1.0); EOS # 0.1 10^3/uL (0.0-0.5); EOS % 0.8 % (0.0-3.0); HEMOGLOBIN 8.7 g/dl (12.0-15.5); LYMPH # 1.4 10^3/uL (1.5-5.0); LYMPH % 17.6 % (24.0-44.0); MEAN CORPUSCULAR HEMOGLOBIN 22.4 pg (27.0-33.0); MEAN CORPUSCULAR VOLUME 74.6 fl (80.0-96.0); MONO # 0.3 10^3/uL (0.0-0.8); MONO % 4.4 % (2.0-8.0); NEUTROPHILS # 5.8 10^3/uL (1.5-8.5); NEUTROPHILS % 76.1 % (36.0-66.0); PLATELET COUNT, AUTOMATED 242 10^3/uL (150-450); RED BLOOD COUNT 3.89 10^6/uL (4.00-5.40); WHITE BLOOD COUNT 7.7 10^3/uL (4.0-10.0)
[2023-05-03 15:20] LABS: ALBUMIN 2.5 G/DL (3.2-5.2); ALKALINE PHOSPHATASE 90 U/L (46-116); ALT/SGPT 25 U/L (7.0-40); AST/SGOT 12 U/L (<34); BILIRUBIN,TOTAL 0.3 MG/DL (0.3-1.2); BLOOD UREA NITROGEN 6 MG/DL (9-23); CALCIUM LEVEL 8.6 MG/DL (8.5-10.1); CARBON DIOXIDE LEVEL 22 MMOL/L (20-31); CHLORIDE LEVEL 107 MMOL/L (98-107); CREATININE FOR GFR 0.46 MG/DL (0.55-1.30); GLOMERULAR FILTRATION RATE > 60.0 (>60); GLUCOSE, FASTING 150 MG/DL (60-100); POTASSIUM SERUM 4.1 MMOL/L (3.5-5.1); SODIUM LEVEL 140 MMOL/L (136-145)
[2023-05-03 15:21] LABS: FERRITIN < 0.9 NG/ML (7.3-270.7); TOTAL 25(OH) VITAMIN D 24.8 NG/ML (20.0-100.0)
[2023-05-03 15:22] LABS: FOLATE > 24.00 NG/ML (>5.4)
[2023-05-03 15:23] LABS: VITAMIN B12 LEVEL 306 PG/ML (211-911)
== END ==
LOC: M PLALAB 09:21
PROVIDERS: ATTEND Psychiatry & Neurology Neurology
DX: R51.9 Headache, unspecified (principal)

== ENCOUNTER → 2023-05-03 | Outpatient (CLI) | payer OTHER ==
[2023-05-03 14:21] LABS: HEMATOCRIT 29.3 % (36.0-47.0); HEMOGLOBIN 8.8 g/dl (12.0-15.5); MEAN CORPUSCULAR HEMOGLOBIN 22.4 pg (27.0-33.0); MEAN CORPUSCULAR VOLUME 74.7 fl (80.0-96.0); PLATELET COUNT, AUTOMATED 245 10^3/uL (150-450); RED BLOOD COUNT 3.92 10^6/uL (4.00-5.40); WHITE BLOOD COUNT 7.4 10^3/uL (4.0-10.0)
== END ==
LOC: M PLALAB 09:23
PROVIDERS: ATTEND Advanced Practice Midwife
DX: Z34.82 Encounter for supervision of other normal pregnancy, second trimester (principal)

== ENCOUNTER → 2023-05-12 | Outpatient (CLI) | payer OTHER | LOC: M LAB 07:08 | PROVIDERS: ATTEND Advanced Practice Midwife | DX: O99.810 Abnormal glucose complicating pregnancy (principal) ==

== ENCOUNTER → 2023-06-09 | Outpatient (CLI) | payer OTHER | LOC: M WHC 09:04 | PROVIDERS: ATTEND Advanced Practice Midwife | DX: O10.913 Unspecified pre-existing hypertension complicating pregnancy, third trimester (principal); Z3A.31 31 weeks gestation of pregnancy ==

== ENCOUNTER 2023-06-17 15:41 | Inpatient (IN) | payer OTHER ==
[~2023-06-17] VITALS: Ht 152.4 cm; Wt 116.0 kg
[2023-06-17 16:12] VITALS: BP 128/65
[2023-06-17] MEDS ORDERED: OXYTOCIN DRIP 30 UNITS in IV 1 EA IV PRN (16:35)
[2023-06-17] MEDS ORDERED: LIDOCAINE 1% MDV 20ML VIAL INFIL PRN (16:35)
[2023-06-17] MEDS ORDERED: AMPICILLIN SOD/SULBACTAM SOD 2 GM in D5W MINI-BAG PLUS 50 ML IV SCH (16:40)
[2023-06-17 17:09] LABS: HEMATOCRIT 32.3 % (36.0-47.0); HEMOGLOBIN 10.2 g/dl (12.0-15.5); MEAN CORPUSCULAR HEMOGLOBIN 25.1 pg (27.0-33.0); MEAN CORPUSCULAR HGB CONC 31.6 g/dl (32.0-36.5); MEAN CORPUSCULAR VOLUME 79.4 fl (80.0-96.0); PLATELET COUNT, AUTOMATED 190 10^3/uL (150-450); RED BLOOD COUNT 4.07 10^6/uL (4.00-5.40); WHITE BLOOD COUNT 6.7 10^3/uL (4.0-10.0)
[2023-06-17] MEDS: AMPICILLIN SOD 2 GM in D5W MINI-BAG PLUS 100 ML IV SCH (17:13)
[2023-06-17] MEDS: BETAMETHASONE SOLUSPAN 6MG/ML 5ML VIAL IM SCH (17:13)
[2023-06-17] MEDS: AZITHROMYCIN 250MG TABLET PO ONE (17:14)
[2023-06-17] MEDS ORDERED: PROC30TA PO (17:55)
[2023-06-17] MEDS ORDERED: HYDR-161 PO (17:56)
[2023-06-17] MEDS ORDERED: HOME MED LIST COMPLETE! XX SCH (19:10)
[2023-06-17 19:26] VITALS: BP 127/67
[2023-06-17] MEDS: NIFEdipine 30MG XL TAB PO SCH (21:00)
[2023-06-17] MEDS: **hydrALAZINE** 10 MG TAB PO SCH (21:00)
[2023-06-17 21:35] VITALS: BP 123/69
[2023-06-17 23:31] VITALS: BP 126/66
[2023-06-18] VITALS (9 sets, daily range): BP systolic 110–138; BP diastolic 60–97; O2SAT 96–98
[2023-06-18] MEDS ORDERED: ENOXAPARIN 40MG/0.4ML SYRINGE (J1650 PER 10MG) SC SCH (09:00)
[2023-06-18] MEDS: SERTRALINE HCL 50 MG TAB PO SCH (09:14)
[2023-06-18] MEDS: ENOXAPARIN 60MG/0.6ML SYRINGE (J1650 PER 10MG) SC SCH (11:13)
[2023-06-18] MEDS: ONDANSETRON 4MG ORAL DISINTEGRATING TAB SL PRN (14:34)
[2023-06-18] MEDS ORDERED: NIFEdipine 30MG XL TAB PO SCH (21:00)
[2023-06-19] VITALS (9 sets, daily range): BP systolic 121–146; BP diastolic 67–88; O2SAT 96–98
[2023-06-19] MEDS: ACETAMINOPHEN 500 MG TAB PO PRN (05:34)
[2023-06-19] MEDS: AMOXICILLIN 875 MG TAB PO SCH (21:37)
[2023-06-20] VITALS (8 sets, daily range): BP systolic 117–150; BP diastolic 63–77; O2SAT 96–100
[2023-06-20] MEDS: FIORICET TAB PO PRN (20:24)
[2023-06-20] MEDS: SODIUM CHLORIDE NASAL 0.65% SPRAY BTL (OCEAN) PRN (20:27)
[2023-06-21 02:00] VITALS: BP 134/78; O2SAT 97
[2023-06-21 06:00] VITALS: BP 127/76; O2SAT 98
[2023-06-21 06:39] LABS: HEMATOCRIT 33.6 % (36.0-47.0); HEMOGLOBIN 10.7 g/dl (12.0-15.5); MEAN CORPUSCULAR HEMOGLOBIN 25.7 pg (27.0-33.0); MEAN CORPUSCULAR HGB CONC 31.8 g/dl (32.0-36.5); MEAN CORPUSCULAR VOLUME 80.6 fl (80.0-96.0); PLATELET COUNT, AUTOMATED 212 10^3/uL (150-450); RED BLOOD COUNT 4.17 10^6/uL (4.00-5.40); WHITE BLOOD COUNT 7.7 10^3/uL (4.0-10.0)
[2023-06-21 09:54] VITALS: BP 156/93
[2023-06-21 14:00] VITALS: BP 165/88; O2SAT 97
[2023-06-21 18:00] VITALS: BP 149/83; O2SAT 97
[2023-06-21 22:00] VITALS: BP 158/95; O2SAT 97
[2023-06-22 02:00] VITALS: BP 118/58; O2SAT 98
[2023-06-22 06:00] VITALS: BP 138/78; O2SAT 99
[2023-06-22 09:02] VITALS: BP 123/68; O2SAT 97
[2023-06-22 16:00] VITALS: BP 118/67; O2SAT 98
[2023-06-22 18:30] VITALS: BP 141/77; O2SAT 97
[2023-06-22 22:00] VITALS: BP 115/59; O2SAT 96
[2023-06-23] VITALS (8 sets, daily range): BP systolic 104–141; BP diastolic 62–80; O2SAT 96–100
[2023-06-24 06:00] VITALS: BP 139/70; O2SAT 99
[2023-06-24 10:00] VITALS: BP 146/92; O2SAT 97
[2023-06-24 14:00] VITALS: BP 136/79; O2SAT 96
[2023-06-24 18:00] VITALS: BP 143/97; O2SAT 98
[2023-06-24 22:00] VITALS: BP 143/92; O2SAT 98
[2023-06-25] VITALS (8 sets, daily range): BP systolic 109–160; BP diastolic 59–98; O2SAT 96–98
[2023-06-26 02:00] VITALS: BP 111/59; O2SAT 97
[2023-06-26 06:00] VITALS: BP 131/75; O2SAT 97
[2023-06-26 10:00] VITALS: BP 133/67; O2SAT 97
[2023-06-26 14:00] VITALS: BP 136/86; O2SAT 96
[2023-06-26 18:00] VITALS: BP 146/97; O2SAT 98
[2023-06-26 22:00] VITALS: BP 151/72; O2SAT 99
[2023-06-27] VITALS (7 sets, daily range): BP systolic 121–144; BP diastolic 66–81; O2SAT 97–98
[2023-06-27 06:52] LABS: HEMATOCRIT 35.9 % (36.0-47.0); HEMOGLOBIN 11.2 g/dl (12.0-15.5); MEAN CORPUSCULAR HEMOGLOBIN 25.1 pg (27.0-33.0); MEAN CORPUSCULAR HGB CONC 31.2 g/dl (32.0-36.5); MEAN CORPUSCULAR VOLUME 80.3 fl (80.0-96.0); PLATELET COUNT, AUTOMATED 186 10^3/uL (150-450); RED BLOOD COUNT 4.47 10^6/uL (4.00-5.40); WHITE BLOOD COUNT 7.2 10^3/uL (4.0-10.0)
[2023-06-27] MEDS ORDERED: LACTATED RINGER'S 1000 ML IV PRN (17:25)
[2023-06-27] MEDS: miSOPROStol 50MCG 1/2 TABLET BUC ONE ×2 (17:58→22:03)
[2023-06-28 02:16] VITALS: BP 140/74
[2023-06-28] MEDS: miSOPROStol 50MCG 1/2 TABLET BUC ONE ×2 (02:16→07:37)
[2023-06-28 05:20] VITALS: BP 129/66
[2023-06-28 06:56] VITALS: BP 134/94
[2023-06-28] MEDS: LR 1,000 ML IV SCH (12:01)
[2023-06-28] MEDS: OXYTOCIN DRIP 30 UNITS in IV 1 EA IV SCH ×2 (12:01→22:00)
[2023-06-28] MEDS: LABETALOL 100MG/20ML VIAL IV STA (16:55)
[2023-06-28] MEDS: PROMETHAZINE 25MG/ML 1ML VIAL IV ONE (18:00)
[2023-06-28] MEDS: BUTORPHANOL 2 MG/ML 1ML VIAL IV ONE (18:00)
[2023-06-28 18:32] LABS: HEMATOCRIT 36.5 % (36.0-47.0); HEMOGLOBIN 11.8 g/dl (12.0-15.5); MEAN CORPUSCULAR HEMOGLOBIN 25.8 pg (27.0-33.0); MEAN CORPUSCULAR HGB CONC 32.3 g/dl (32.0-36.5); MEAN CORPUSCULAR VOLUME 79.7 fl (80.0-96.0); PLATELET COUNT, AUTOMATED 223 10^3/uL (150-450); RED BLOOD COUNT 4.58 10^6/uL (4.00-5.40); WHITE BLOOD COUNT 11.8 10^3/uL (4.0-10.0)
[2023-06-28] MEDS ORDERED: diphenhydrAMINE 50MG/ML VIAL IV PRN (18:55)
[2023-06-28] MEDS ORDERED: ePHEDrine SULFATE 25 MG/5 ML(5MG/ML) SYRINGE IVP PRN (18:55)
[2023-06-28] MEDS: FENTANYL/ROPIVACAINE/NACL BAG 100 ML EPIDURAL SCH (18:55)
[2023-06-28] MEDS ORDERED: ONDANSETRON 4MG 2ML VIAL IV PRN (18:55)
[2023-06-28] MEDS ORDERED: LR 500 ML IV PRN (18:55)
[2023-06-28] MEDS ORDERED: NALOXONE INJ 0.4MG/1ML VIAL IV PRN (18:55)
[2023-06-28] MEDS ORDERED: EPIDURAL/PCA KEYS XX PRN (18:55)
[2023-06-28] MEDS ORDERED: OXYTOCIN 30UNITS IN 0.9% NaCl 500ML IV BAG As Ordered ONE (21:20)
[2023-06-28] MEDS ORDERED: DIBUCAINE 1% OINTMENT 30GM TOP PRN (21:20)
[2023-06-28] MEDS ORDERED: ACETAMINOPHEN 500 MG TAB PO PRN (21:20)
[2023-06-28] MEDS ORDERED: IBUPROFEN 600MG TAB PO PRN (21:20)
[2023-06-28] MEDS ORDERED: RHOGAM 300MCG (1500IU) INJ IM SCH (21:20)
[2023-06-28] MEDS ORDERED: DOCUSATE SODIUM 100MG CAPSULE PO PRN (21:20)
[2023-06-28] MEDS ORDERED: ACETAMINOPHEN TAB 650MG DOSE (2X325MG) PO PRN (21:20)
[2023-06-29 01:02] VITALS: BP 134/82; O2SAT 96
[2023-06-29 05:55] VITALS: BP 146/89; O2SAT 98
[2023-06-29] MEDS: PRENATAL VITAMINS CHEWABLE TABLET PO SCH (08:21)
[2023-06-29 08:27] VITALS: BP 131/76; O2SAT 98
[2023-06-29 19:20] VITALS: BP 135/76; O2SAT 98
[2023-06-29 21:00] VITALS: BP 129/77; O2SAT 98
[2023-06-30 06:35] VITALS: BP 139/73; O2SAT 98
[2023-06-30] MEDS: IBUPROFEN 800 MG TAB PO PRN (08:11)
[2023-06-30 08:12] VITALS: BP 137/87
[2023-06-30] MEDS: MEASLES,MUMPS,RUBELLA VACCINE INJ (MMR-II) SC.IMMUN ONE (09:00)
== END 2023-06-30 14:45 | disposition home or self-care (01) | DRG 560 ==
LOC: M LDO 15:41 → M LDI 16:29 → M OBS 06-18 09:56 → M LDI 06-27 15:51 → M OBS 06-29 01:00
PROVIDERS: ADMIT Specialist; ATTEND Advanced Practice Midwife
PROC: 3E0P7GC Introduction of Other Therapeutic Substance into Female Reproductive, Via Natural or Artificial Opening (ICD-10-PCS; 2023-06-27)
PROC: 10E0XZZ Delivery of Products of Conception, External Approach (ICD-10-PCS; principal; 2023-06-28)
DX: O42.113 Preterm premature rupture of membranes, onset of labor more than 24 hours following rupture, third trimester (principal); O10.02 Pre-existing essential hypertension complicating childbirth; Z3A.32 32 weeks gestation of pregnancy; O69.81X0 Labor and delivery complicated by cord around neck, without compression, not applicable or unspecified; Z37.0 Single live birth

== ENCOUNTER → 2024-06-18 | Outpatient (CLI) | payer OTHER ==
[~2024-06-18] MED LIST changes: +HYDR-161 PO; +PROC30TA PO
[2024-06-18 14:12] LABS: BASO # 0.1 10^3/uL (0.0-0.2); BASO % 0.9 % (0.0-1.0); EOS # 0.1 10^3/uL (0.0-0.5); EOS % 1.2 % (0.0-3.0); HEMATOCRIT 40.7 % (36.0-47.0); HEMOGLOBIN 13.2 g/dl (12.0-15.5); LYMPH # 2.1 10^3/uL (1.5-5.0); LYMPH % 27.3 % (24.0-44.0); MEAN CORPUSCULAR HEMOGLOBIN 26.6 pg (27.0-33.0); MEAN CORPUSCULAR HGB CONC 32.4 g/dl (32.0-36.5); MEAN CORPUSCULAR VOLUME 81.9 fl (80.0-96.0); MONO # 0.5 10^3/uL (0.0-0.8); NEUTROPHILS % 64.3 % (36.0-66.0); PLATELET COUNT, AUTOMATED 288 10^3/uL (150-450); RED BLOOD COUNT 4.97 10^6/uL (4.00-5.40); WHITE BLOOD COUNT 7.7 10^3/uL (4.0-10.0)
[2024-06-18 14:39] LABS: ALBUMIN 3.8 G/DL (3.2-5.2); ALKALINE PHOSPHATASE 104 U/L (35-104); ALT/SGPT 48 U/L (7.0-40); AST/SGOT 16 U/L (<34); BILIRUBIN,TOTAL 0.3 MG/DL (0.3-1.2); BLOOD UREA NITROGEN 12 MG/DL (9-23); CALCIUM LEVEL 8.8 MG/DL (8.5-10.1); CARBON DIOXIDE LEVEL 27 MMOL/L (20-31); CHLORIDE LEVEL 107 MMOL/L (98-107); CREATININE FOR GFR 0.69 MG/DL (0.55-1.30); GLOMERULAR FILTRATION RATE > 60.0 (>60); GLUCOSE, FASTING 82 MG/DL (60-100); POTASSIUM SERUM 4.3 MMOL/L (3.5-5.1); SODIUM LEVEL 139 MMOL/L (136-145); TOTAL PROTEIN 7.1 G/DL (5.7-8.2); VITAMIN B12 LEVEL 569 PG/ML (211-911)
[2024-06-18 14:40] LABS: FOLATE 17.1 NG/ML (>5.4)
== END ==
LOC: M LAB 12:31
PROVIDERS: ATTEND Psychiatry & Neurology Neurology
DX: R51.9 Headache, unspecified (principal)

== ENCOUNTER → 2024-06-18 | Outpatient (CLI) | payer OTHER | LOC: M RAD 12:33 | PROVIDERS: ATTEND Physician Assistant | DX: M25.512 Pain in left shoulder (principal); W00.0XXA Fall on same level due to ice and snow, initial encounter; Y92.9 Unspecified place or not applicable ==

== ENCOUNTER 2025-02-20 17:46 | Emergency (ER) | payer OTHER ==
[~2025-02-20] VITALS: Ht 152.4 cm; Wt 110.2 kg
[2025-02-20] MEDS ORDERED: FERR325T19 (17:56)
[2025-02-20] MEDS ORDERED: AMIT10TA11 (17:56)
[2025-02-20 18:59] LABS: BASO # 0.1 10^3/uL (0.0-0.2); BASO % 0.8 % (0.0-1.0); EOS # 0.1 10^3/uL (0.0-0.5); EOS % 1.5 % (0.0-3.0); LYMPH # 1.8 10^3/uL (1.5-5.0); LYMPH % 23.5 % (24.0-44.0); MONO # 0.5 10^3/uL (0.0-0.8); MONO % 5.9 % (2.0-8.0); NEUTROPHILS # 5.3 10^3/uL (1.5-8.5); NEUTROPHILS % 67.9 % (36.0-66.0); PLATELET COUNT, AUTOMATED 259 10^3/uL (150-450)
[2025-02-20 19:22] LABS: CALCIUM LEVEL 8.7 MG/DL (8.5-10.1); CARBON DIOXIDE LEVEL 26 MMOL/L (20-31); CHLORIDE LEVEL 104 MMOL/L (98-107); CREATININE FOR GFR 0.65 MG/DL (0.55-1.30); GLOMERULAR FILTRATION RATE > 90.0 (>60); POTASSIUM SERUM 3.9 MMOL/L (3.5-5.1); SODIUM LEVEL 139 MMOL/L (136-145)
[2025-02-20 19:46] LABS: HCG, SERUM QUANTITATIVE 13256.2 MIU/ML (<4.2)
[2025-02-20 20:40] LABS: KETONE, URINE AUTO RFX NEGATIVE (NEGATIVE); NITRITE, URINE AUTO RFX NEGATIVE (NEGATIVE); RBC, URINE AUTO RFX 5 /HPF (0-3); SQUAM EPITHELIAL CELL UR AURFX 1 /HPF (0-6); WBC, URINE AUTO RFX 8 /HPF (0-3)
[2025-02-20 20:41] LABS: LEUKOCYTE ESTERASE UR AUTO RFX 1+ (NEGATIVE)
[2025-02-20 23:30] VITALS: BP 145/80; TEMP 97.5; O2SAT 98
[2025-02-20] MEDS: RHOGAM 300MCG (1500IU) INJ IM ONE (23:35)
== END 2025-02-20 23:51 | disposition home or self-care (01) ==
LOC: M ED 17:46
DX: O03.9 Complete or unspecified spontaneous abortion without complication (principal); Z3A.01 Less than 8 weeks gestation of pregnancy; Z79.899 Other long term (current) drug therapy; Z79.810 Long term (current) use of selective estrogen receptor modulators (SERMs)
CPT/HCPCS: 76801; 76830; 80048; 81001; 84702; 85025; 86850; 86900; 86901; 87086; 93976; 96372; 99283; J2790

== ENCOUNTER → 2025-02-25 | Outpatient (CLI) | payer OTHER ==
[~2025-02-25] MED LIST changes: +AMIT10TA11; +FERR325T19
== END ==
LOC: M PLALAB 14:40
PROVIDERS: ATTEND Obstetrics & Gynecology
DX: O02.1 Missed abortion (principal)